=== PATIENT | born 1955 | race Caucasian/White ===

== ENCOUNTER → 2024-02-24 09:50 | Outpatient (BNVA) | payer MEDICARE, OTHER, SELFPAY | PROVIDERS: PCP Family Medicine; Referring Provider Family Medicine; Visit Provider Specialist | DX: G43.909 Migraine, unspecified, not intractable, without status migrainosus (principal); G43.711 Chronic migraine without aura, intractable, with status migrainosus | CPT/HCPCS: 99204 ==

== ENCOUNTER → 2024-05-25 14:16 | Outpatient (BNVA) | payer MEDICARE, OTHER, SELFPAY | PROVIDERS: PCP Family Medicine; Visit Provider Specialist | DX: G43.711 Chronic migraine without aura, intractable, with status migrainosus (principal) | CPT/HCPCS: 99214 ==

== ENCOUNTER → 2024-08-24 12:49 | Outpatient (BNVA) | payer MEDICARE, OTHER, SELFPAY | PROVIDERS: PCP Family Medicine; Visit Provider Specialist | DX: G43.711 Chronic migraine without aura, intractable, with status migrainosus (principal); G43.909 Migraine, unspecified, not intractable, without status migrainosus | CPT/HCPCS: 99213 ==

== ENCOUNTER → 2024-09-23 13:02 | Outpatient (BNVA) | payer MEDICARE, OTHER, SELFPAY | PROVIDERS: PCP Family Medicine; Visit Provider Specialist | DX: G43.711 Chronic migraine without aura, intractable, with status migrainosus (principal) | CPT/HCPCS: 64615; J0585 ==

== ENCOUNTER → 2024-12-23 12:25 | Outpatient (BNVA) | payer MEDICARE, OTHER, SELFPAY | PROVIDERS: PCP Family Medicine; Visit Provider Specialist | DX: G43.711 Chronic migraine without aura, intractable, with status migrainosus (principal); G43.909 Migraine, unspecified, not intractable, without status migrainosus | CPT/HCPCS: 64615; J0585; J9999 ==

== ENCOUNTER → 2025-04-06 10:09 | Outpatient (BNVA) | payer MEDICARE, OTHER, SELFPAY | PROVIDERS: PCP Family Medicine; Visit Provider Specialist | DX: G43.711 Chronic migraine without aura, intractable, with status migrainosus (principal) | CPT/HCPCS: 64615; J0585; J9999 ==

== ENCOUNTER → 2025-07-06 09:20 | Outpatient (BNVA) | payer MEDICARE, OTHER, SELFPAY | PROVIDERS: PCP Family Medicine; Visit Provider Specialist | DX: G43.711 Chronic migraine without aura, intractable, with status migrainosus (principal) | CPT/HCPCS: 64615; J0585; J9999 ==